=== PATIENT | male | born 1960 | race Caucasian/White ===

== ENCOUNTER 2018-06-07 06:53 | Inpatient (IN) | payer BC ==
[~2018-06-07] VITALS: Ht 180.3 cm; Wt 103.0 kg
[~2018-06-07 06:53] MED LIST: ASCO10004 PO; ASPI-496 PO; CHOL500015 PO; LANS15CA5 PO; LISI40TA PO; MELO15TA24 PO; MULT-516 PO; MUSCLE RELAXANT; POTASSIUM PO; ZINC PO
[2018-06-07] MEDS ORDERED: ONDANSETRON ODT 8 MG PO ONE (08:00)
[2018-06-07] MEDS ORDERED: ACETAMINOPHEN 500 MG TABLET PO ONE (08:00)
[2018-06-07] MEDS ORDERED: GABAPENTIN 300 MG CAPSULE PO ONE (08:00)
[2018-06-07 08:01] VITALS: BP 176/106
[2018-06-07] MEDS ORDERED: LACTATED RINGERS 1,000 ML IV SCH (08:19)
[2018-06-07] MEDS ORDERED: MIDAZOLAM 1 MG/ML, 2ML ONE (10:14)
[2018-06-07] MEDS ORDERED: PROPOFOL 50 ML ONE ×3 (10:14→13:04)
[2018-06-07] MEDS ORDERED: FENTANYL PF 250 MCG/5ML ONE (10:15)
[2018-06-07] MEDS ORDERED: BACITRACIN 50,000 UNIT ONE (10:56)
[2018-06-07] MEDS ORDERED: THROMBIN 20,000 UNIT VIAL TP ONE (10:56)
[2018-06-07] MEDS ORDERED: BUPIVACAINE/PF-EPI 0.5% 1:200K ONE (10:56)
[2018-06-07] MEDS ORDERED: METHYLENE BLUE 10 MG/ML 10ML ONE (10:56)
[2018-06-07] MEDS ORDERED: ALBUTEROL SULFATE 2.5 MG/3 ML NPPB PRN (11:00)
[2018-06-07] MEDS ORDERED: LABETALOL 5MG/ML, 20ML IV PRN (11:00)
[2018-06-07] MEDS ORDERED: MEPERIDINE/PF 25MG/0.5ML IVPush PRN (11:00)
[2018-06-07] MEDS ORDERED: METOCLOPRAMIDE 5 MG/ML, 2ML IV PRN (11:00)
[2018-06-07] MEDS ORDERED: METOPROLOL 1 MG/ML, 5ML IV PRN (11:00)
[2018-06-07] MEDS ORDERED: LORazepam 2 MG/ML, 1ML IVPush PRN (11:00)
[2018-06-07] MEDS ORDERED: hydrALAzine 20 MG/ML, 1ML IV PRN (11:00)
[2018-06-07] MEDS ORDERED: OXYcodone 5 MG/5 ML ORAL.SOL UDC PO PRN (11:00)
[2018-06-07] MEDS ORDERED: MORPHINE SULFATE 4 MG/ML, 1ML IVPush PRN (11:00)
[2018-06-07] MEDS ORDERED: HYDROmorphone 2 MG/ML, 1ML IVPush PRN (11:00)
[2018-06-07] MEDS ORDERED: ONDANSETRON 2MG/ML, 2ML IV PRN ×2 (11:00→16:30)
[2018-06-07] MEDS ORDERED: PHENYLEPHRINE 10 MG/ML ONE (11:33)
[2018-06-07] MEDS ORDERED: ROCURONIUM 10 MG/ML,10ML ONE (11:33)
[2018-06-07] MEDS ORDERED: CEFAZOLIN 1,000 MG ONE (11:33)
[2018-06-07] MEDS ORDERED: SUCCINYLCHOLINE 20 MG/ML, 10ML ONE (11:33)
[2018-06-07] MEDS ORDERED: EPHEDRINE 50 MG/ML, 1ML ONE (11:33)
[2018-06-07] MEDS ORDERED: DEXAMETHASONE 4 MG/ML, 1ML ONE (11:33)
[2018-06-07] MEDS ORDERED: FENTANYL PF 100 MCG/2ML ONE (14:19)
[2018-06-07] MEDS ORDERED: OXYcodone 5 MG/5 ML ORAL.SOL UDC ONE (14:19)
[2018-06-07] MEDS: FENTANYL PF 100 MCG/2ML IV PRN ×3 (14:21→14:55)
[2018-06-07] MEDS ORDERED: MEPERIDINE/PF 25MG/ML,1ML ONE (14:22)
[2018-06-07] MEDS ORDERED: METHOCARBAMOL 1,000 MG in DEXTROSE 5% 100 ML IV ONE (15:00)
[2018-06-07] MEDS ORDERED: ACETAMINOPHEN 325 MG TABLET PO PRN (16:30)
[2018-06-07] MEDS ORDERED: MAGNESIUM HYDROXIDE 8%, 30ML UDC PO PRN (16:30)
[2018-06-07] MEDS ORDERED: ACETAMINOPHEN 650 MG SUPP PR PRN (16:30)
[2018-06-07] MEDS ORDERED: BISACODYL 10 MG SUPP PR PRN (16:30)
[2018-06-07] MEDS ORDERED: DIPHENHYDRAMINE 50 MG/ML, 1ML IVPush PRN (16:30)
[2018-06-07] MEDS ORDERED: PROMETHAZINE 25 MG/ML, 1ML IM PRN (16:30)
[2018-06-07] MEDS ORDERED: HYDROcodone/APAP 5/325 TABLET PO PRN (16:30)
[2018-06-07] MEDS ORDERED: morphine SULFATE 10 MG/ML, 1ML IV PRN (16:30)
[2018-06-07] MEDS ORDERED: DIPHENHYDRAMINE 50 MG CAPSULE PO PRN (16:30)
[2018-06-07] MEDS ORDERED: DIPHENHYDRAMINE 50 MG/ML, 1ML IM PRN (16:30)
[2018-06-07] MEDS ORDERED: HYDROcodone/APAP 10/325 MG TABLET PO PRN (16:30)
[2018-06-07] MEDS: DEXAMETHASONE 4 MG/ML, 1ML IV SCH ×2 (16:47→21:42)
[2018-06-07] MEDS ORDERED: MUSCLE RELAXANT MC SCH (17:00)
[2018-06-07] MEDS: NS + 20MEQ KCL 1,000 ML IV SCH (17:11)
[2018-06-07 19:13] VITALS: BP 134/79
[2018-06-07] MEDS ORDERED: CEFAZOLIN PMX 2GM/50ML 50 ML IVPB SCH (19:30)
[2018-06-07] MEDS: CEFAZOLIN PMX 2GM/50ML 50 ML IVPB SCH (20:23)
[2018-06-07] MEDS: METHOCARBAMOL 750 MG in DEXTROSE 5% 100 ML IV SCH (21:42)
[2018-06-08 00:09] VITALS: BP 110/60
[2018-06-08] MEDS: OXYcodone/APAP 5/325MG TABLET PO PRN ×2 (01:41→08:47)
[2018-06-08] MEDS: NS + 20MEQ KCL 1,000 ML IV SCH (02:30)
[2018-06-08 03:59] VITALS: BP 118/59
[2018-06-08] MEDS: DEXAMETHASONE 4 MG/ML, 1ML IV SCH ×2 (04:09→10:56)
[2018-06-08] MEDS: CEFAZOLIN PMX 2GM/50ML 50 ML IVPB SCH (04:09)
[2018-06-08] MEDS: METHOCARBAMOL 750 MG in DEXTROSE 5% 100 ML IV SCH (05:10)
[2018-06-08] MEDS ORDERED: OMEPRAZOLE 20 MG CAPSULE.DR PO SCH (06:00)
[2018-06-08 08:01] VITALS: BP 133/77
[2018-06-08] MEDS ORDERED: SENNA/DOCUSATE TABLET PO SCH (09:00)
[2018-06-08] MEDS ORDERED: POTASSIUM 99 MG PO SCH (09:00)
[2018-06-08] MEDS ORDERED: CHOLECALCIFEROL 1,000 UNIT TABLET PO SCH (09:00)
[2018-06-08] MEDS ORDERED: MULTIVITAMIN 1 TABLET PO SCH (09:00)
[2018-06-08] MEDS ORDERED: LISINOPRIL 20 MG TABLET PO SCH (09:00)
[2018-06-08] MEDS ORDERED: METH750T87 PO (11:10)
[2018-06-08] MEDS ORDERED: METH4TAB2 PO (11:11)
[2018-06-08] MEDS ORDERED: TRAM50TA2 PO (11:12)
[2018-06-09] MEDS ORDERED: METHOCARBAMOL 750 MG TABLET PO SCH (16:30)
== END 2018-06-08 11:36 | disposition home or self-care (01) | DRG 473 ==
LOC: ORIP 06:53 → 4NOR 16:07 → DCLOUNGE 06-08 11:25
PROVIDERS: ADMIT Neurological Surgery; ATTEND Neurological Surgery
PROC: 0RB30ZZ Excision of Cervical Vertebral Disc, Open Approach (ICD-10-PCS; 2018-06-07)
PROC: 4A11X4G Monitoring of Peripheral Nervous Electrical Activity, Intraoperative, External Approach (ICD-10-PCS; 2018-06-07)
PROC: 0RG20A0 Fusion of 2 or more Cervical Vertebral Joints with Interbody Fusion Device, Anterior Approach, Anterior Column, Open Approach (ICD-10-PCS; principal; 2018-06-07 12:00)
DX: M50.021 Cervical disc disorder at C4-C5 level with myelopathy (principal); K21.9 Gastro-esophageal reflux disease without esophagitis; M50.022 Cervical disc disorder at C5-C6 level with myelopathy; M50.023 Cervical disc disorder at C6-C7 level with myelopathy; I10 Essential (primary) hypertension; M40.50 Lordosis, unspecified, site unspecified
CPT/HCPCS: 72040; C1713; C1776; C9359; G0378; J0690; J1100; J2175; J2250; J2704; J3010; J3480; Q0162; C1778; J0330; J2270; J2370; J2800; J7120; Q9968